=== PATIENT | male | born 1985 | race Hispanic/Latino ===

== ENCOUNTER 2017-07-13 01:11 | Emergency (ER) | payer OTHER, SELFPAY ==
[2017-07-13] MEDS ORDERED: Mag-Al Plus 1200 MG/1200 MG/120 MG/30 ML UDCUP ONE (01:58)
[2017-07-13] MEDS ORDERED: Lidocaine Viscous Sol 2% 15 ml UD Cup ONE (01:59)
--- NOTE | 2017-07-13 08:10 | RAD ---
PA AND LATERAL VIEWS OF CHEST: Date: 07/13/17 HISTORY: Chest pain. Cough. FINDINGS: The cardiomediastinum is normal. The lungs are well expanded without focal areas of consolidation, pn eumothorax, or pleural effusions. No acute osseous abnormalities are seen. IMPRESSION: No radiographic evidence of acute cardiopulmonary process. POS: [facility]
== END 2017-07-13 02:43 | disposition home or self-care (01) ==
LOC: NAV ERS 01:11
DX: R10.13 Epigastric pain (principal); J06.9 Acute upper respiratory infection, unspecified; B20 Human immunodeficiency virus [HIV] disease; E78.5 Hyperlipidemia, unspecified; I10 Essential (primary) hypertension; G40.909 Epilepsy, unspecified, not intractable, without status epilepticus; Z79.899 Other long term (current) drug therapy
CPT/HCPCS: 71046; 87804